=== PATIENT | female | born 1975 | race Caucasian/White ===

== ENCOUNTER 2019-01-08 16:06 | Inpatient (IN) | payer OTHER ==
--- NOTE | 2019-01-08 12:05 | PDOC.LDHP ---
Labor and Delivery H&P Chief complaint: scheduled induction HPI: 43 yo G1 @ 38w0d by 28 week sono who presents for IOL due to BDM on Metformin, AMA, morbid obesity. Pt also has h/o LTC, tobacco and statin exposure in early . MFM ultrasounds and echo is wnl. Current gestational age (weeks): 38 Due date: 01/22/19 Dating criteria: other Grav: 1 Para: 0 Current complications: pregestational diabetes, other (Morbid obesity , tobacco use, statin exposure, LTC) Current medications: pre-jeaneth vitamins, other (Metformin 1000 mg BID) Previous surgical history: other (Bilteral knee arthroscopy Tonsillectomy) Allergies/Adverse Reactions: Allergies Allergy/AdvReac Type Severity Reaction Status Date / Time No Known Drug Allergies Allergy Verified 01/08/19 21:38 Social history: tobacco use (Stopped, however, smoked until 28 weeks) - Physical Exam Vital signs reviewed and normal: yes General: NAD Abdomen: gravid FHT: category 1 (140s, mod janell, +accels, no decels) [place] contractions every: none - Vaginal Exam cm dilated: 1 (per RN check ) Effacement: 25% Station: -2 - OB Labs Blood type: O RH: negative Antibody Screen: negative HIV: negative RPR: negative HEPSAg: negative GBS: negative Urine drug screen: negative Rubella: immune Additional Labs: NIPT and carrier screening wnl HbA1C 5.5 - Assessment 38w0d IUP BDM Morbid obesity Tobacco and statin exposure in LTC IOL - Plan Plan: admit to L&D, cervical ripening, informed consent obtained, anesthesia consult for pain management -: Decreased daily Metformin to 500 mg BID while in labor Accuchecks q hour in active labor
[2019-01-08] MEDS ORDERED: Diphenoxylate HCl/Atropine Tablet PO PRN (20:55)
[2019-01-08] MEDS ORDERED: Misoprostol 200 MCG TAB PR PRN (20:55)
[2019-01-08] MEDS ORDERED: HYDROcodone/Acetaminophen 5/325 mg Tablet PO PRN (20:55)
[2019-01-08] MEDS ORDERED: Insulin Regular 300 UNITS/3 ML VIAL SC PRN (20:55)
[2019-01-08] MEDS ORDERED: Butorphanol Tartrate 1 MG/ML VIAL SLOW IVP PRN (20:55)
[2019-01-08] MEDS ORDERED: NS / Oxytocin 40 units/1000ml 1,000 ML IV PRN (20:55)
[2019-01-08] MEDS ORDERED: Ondansetron PF 4 MG/2 ML Vial IVP PRN (20:55)
[2019-01-08] MEDS ORDERED: Methylergonovine 0.2 MG/ML VIAL IM PRN (20:55)
[2019-01-08] MEDS ORDERED: Ibuprofen 800 MG TAB PO PRN (20:55)
[2019-01-08] MEDS ORDERED: Lidocaine 1% (PF) 30 ML VIAL SC PRN (20:55)
[2019-01-08] MEDS ORDERED: Acetaminophen 500 MG TAB PO PRN (20:55)
[2019-01-08] MEDS ORDERED: Promethazine HCl 25 MG/ML VIAL IM PRN (20:55)
[2019-01-08] MEDS ORDERED: Carboprost 250 MCG/ML AMP IM PRN (20:55)
[2019-01-08] MEDS ORDERED: metFORMIN 500 MG TAB PO SCH (21:15)
[2019-01-08 21:37] VITALS: BMI 43.6
[2019-01-08] MEDS: Lactated Ringer's 1,000 ML IV SCH (21:48)
[2019-01-08] MEDS: Misoprostol 100 MCG TAB VAG SCH (22:03)
[2019-01-08 22:26] LABS: Hemoglobin 11.5 g/dL (12.0-16.0); Mean Corpuscular HGB CONC 34.3 g/dL (32.0-36.0); Mean Corpuscular Hemoglobin 31.7 pg (27.0-31.0); Mean Corpuscular Volume 92.4 fL (78.0-98.0); Mean Platelet Volume 9.5 fL (7.4-10.4); Platelet Count 209 thou/uL (130-400); RBC Distribution Width 12.3 % (11.5-14.5); Red Blood Cell (RBC) Count 3.63 mill/uL (4.20-5.40); White Blood Cell (WBC) Count 12.6 thou/uL (4.8-10.8)
[2019-01-08 23:00] LABS: Syphilis Antibody Nonreactive (Nonreactive); Syphilis Antibody Index 0.03 S/CO (<1.00 Non-Reactive)
[2019-01-08 23:33] LABS: HBSAg Index 0.25 S/CO (0-0.99); HIV (1/2) Antibody/Antigen Non-Reactive (NonReactive); HIV 1/2 INDEX 0.09 S/CO (<1.00); Hep B Surf Ag Non-Reactive S/CO (NonReactive)
[2019-01-09] MEDS ORDERED: Terbutaline Sulfate 1 MG/ML VIAL ONE (02:07)
--- NOTE | 2019-01-09 02:11 | PDOC.LDPN ---
Labor & Delivery Progress Note - Subjective Subjective: other (Called by RN for concern for FHT. Per RN pt comfortable. ) - Objective Vital signs reviewed and normal: yes Dilation: 1 Effacement: 25% Station: -2 FHT: category 2 (140s, mod janell, +accels, ? variable vs prolonged decels with recovery to baseline. ) [place] contractions every: unable to adequately assess due to obesity Resuscitative measures: maternal oxygen, maternal IV fluids, maternal position change - Assessment (1) 38 weeks gestation of Code(s): Z3A.38 - 38 WEEKS GESTATION OF Current Visit: Yes Status : Acute (2) Diabetes mellitus affecting Code(s): O24.919 - UNSP DIABETES MELLITUS IN , UNSPECIFIED TRIMESTER Current Visit: Yes Status: Acute (3) Morbid obesity Code(s): E66.01 - MORBID (SEVERE) OBESITY DUE TO EXCESS CALORIES Current Visit : Yes Status: Acute (4) Advanced maternal age (AMA) in Code(s): [id number] - Current Visit: Yes Status: Acute Plan: continue plan of care, resuscitative measures -: s/p cytotec x1. Due to change in FHT and inability to assess ctx adequately, will give dose of terb x1 as pt may have hyperstimulation that is unable to be fully evaluated leading to decels. Resuscitative measures. Reassess shortly to determine if IOL may be continued. After terb x1 decels resolved and cook balloon placed for cervical ripening by Dr. Lopez.
[2019-01-09] MEDS: Lactated Ringer's 1,000 ML IV SCH ×2 (02:15→08:17)
[2019-01-09] MEDS ORDERED: Terbutaline Sulfate 1 MG/ML VIAL SC SCH (02:15)
--- NOTE | 2019-01-09 08:04 | PDOC.LDPN ---
Labor & Delivery Progress Note - Subjective Subjective: comfortable - Objective Vital signs reviewed and normal: yes General: NAD Uterine fundus: non tender Dilation: 4 Effacement: 75% Station: -2 FHT: category 2 (140s, mod janell, +accels, few variable decels with recovery (one prolonged to 60s x 2 min with recovery). ) Other exam findings: Cook balloon removed AROM: clear fluid IUPC placed: yes FSE placed: yes Resuscitative measures: maternal IV fluids, maternal position change - Assessment (1) 38 weeks gestation of Code(s): Z3A.38 - 38 WEEKS GESTATION OF Current Visit: Yes Status : Acute (2) Diabetes mellitus affecting Code(s): O24.919 - UNSP DIABETES MELLITUS IN , UNSPECIFIED TRIMESTER Current Visit: Yes Status: Acute (3) Morbid obesity Code(s): E66.01 - MORBID (SEVERE) OBESITY DUE TO EXCESS CALORIES Current Visit : Yes Status: Acute (4) Advanced maternal age (AMA) in Code(s): [id number] - Current Visit: Yes Status: Acute Plan: continue plan of care, pitocin for augmentation, resuscitative measures -: AROM and Internals placed Monitor and if FHTs reassuring will consider adding pitocin for IOL
[2019-01-09] MEDS: metFORMIN 500 MG TAB PO SCH ×2 (08:29→17:24)
[2019-01-09] MEDS ORDERED: NS w/ Oxytocin 10 units 500 ML IV SCH (09:00)
[2019-01-09] MEDS ORDERED: Fentanyl 4 mcg/Bup 0.1% Cadd 100 ML ONE (09:08)
[2019-01-09] MEDS ORDERED: Promethazine HCl 25 MG/ML VIAL IM PRN ×2 (09:40→12:59)
[2019-01-09] MEDS ORDERED: Ondansetron PF 4 MG/2 ML Vial IVP PRN ×2 (09:40→12:59)
[2019-01-09] MEDS ORDERED: diphenhydrAMINE 50 MG/ML VIAL IVP PRN ×2 (09:40→12:59)
[2019-01-09] MEDS ORDERED: Naloxone HCl 0.4 mg/ml Vial IVP PRN ×4 (09:40→12:59)
[2019-01-09] MEDS ORDERED: Acetaminophen 325 MG TAB PO PRN (09:40)
[2019-01-09] MEDS ORDERED: Lactated Ringer's 500 ML IV PRN (09:40)
[2019-01-09] MEDS ORDERED: ePHEDrine/0.9% NaCl/PF SYRINGE 50 mg/10 ml SLOW IVP PRN (09:40)
[2019-01-09] MEDS ORDERED: Eucerin (Mineral Oil/Petrolatum,White) 30 gm Jar TOP PRN ×2 (09:40→12:59)
[2019-01-09] MEDS ORDERED: Communication Order-Pharmacy FS SCH ×2 (09:45→13:00)
[2019-01-09] MEDS ORDERED: Fentanyl 4 mcg/Bupivacaine 0.1% Cassette 100 ML EPIDURAL SCH (09:45)
[2019-01-09] MEDS ORDERED: Bicitra 30 ML UDCUP ONE (12:23)
[2019-01-09] MEDS ORDERED: Lidocaine 2% 10 ML INJ ONE (12:26)
--- NOTE | 2019-01-09 12:28 | PDOC.LDPN ---
Labor & Delivery Progress Note - Subjective Subjective: comfortable, other (Increased vaginal bleeding noted by RN and OBH on exam ) - Objective Abnormal vital signs: mild HTN, no persistent severe range BPs General: NAD Uterine fundus: non tender Dilation: 7-8 Effacement: 90% Station: -1 FHT: category 2 (130s, min janell, +accels, prolonged decels to 60s x 2 min with recovery between ) Resuscitative measures: maternal oxygen, maternal IV fluids, maternal position change - Assessment (1) 38 weeks gestation of Code(s): Z3A.38 - 38 WEEKS GESTATION OF Current Visit: Yes Status : Acute (2) Diabetes mellitus affecting Code(s): O24.919 - UNSP DIABETES MELLITUS IN , UNSPECIFIED TRIMESTER Current Visit: Yes Status: Acute (3) Morbid obesity Code(s): E66.01 - MORBID (SEVERE) OBESITY DUE TO EXCESS CALORIES Current Visit : Yes Status: Acute (4) Advanced maternal age (AMA) in Code(s): [id number] - Current Visit: Yes Status: Acute -: Reviewed Concerning cat 2 FHTs and increased VB with pt. Due to these findings, concern for possible placental abruption. Pt still remote from delivery at this time, therefore, recommended PLTCS and pt amenable. PreE labs also ordered.
[2019-01-09] MEDS ORDERED: Oxytocin 10 UNITS/ML VIAL ONE (12:42)
[2019-01-09] MEDS ORDERED: MORPHINE 5 MG/10 ML PF VIAL ONE (12:43)
[2019-01-09 12:45] LABS: Bacteria/HPF None Seen HPF (None Seen); Hyaline Casts/LPF 0-3 HYALINE CAST LPF (0-3 Hyaline); Pathc Cast-AUWi Flag 0.81 (0-2.49); RBC/HPF 0-3 HPF (0-3); Squamous Epithelial 0-3 HPF (0-3); WBC/HPF None Seen HPF (0-3)
[2019-01-09] MEDS ORDERED: Azithromycin 500 MG in Sodium Chloride 0.9% 250 ML 250 ML IVPB SCH (12:45)
[2019-01-09] MEDS ORDERED: CEFAZOLIN 3 GM in Premix Bag 1 BAG IVPB SCH (12:45)
[2019-01-09] MEDS ORDERED: CEFAZOLIN 3 GM in Sodium Chloride 0.9% 100 ML IVPB SCH (12:45)
[2019-01-09] MEDS ORDERED: CEFAZOLIN 1 GM VIAL ONE (12:48)
[2019-01-09] MEDS ORDERED: Meperidine HCl/PF 25 MG/ML VIAL SLOW IVP PRN (12:59)
[2019-01-09] MEDS ORDERED: L&D-Morphine 4 MG/ML VIAL SLOW IVP PRN (12:59)
[2019-01-09] MEDS ORDERED: Promethazine HCl 25 MG SUPP PR PRN (12:59)
[2019-01-09] MEDS ORDERED: Ondansetron HCl/PF 4 MG/2 ML Vial IVP PRN (12:59)
[2019-01-09] MEDS ORDERED: Naloxone HCl 0.4 mg/ml Vial IV PRN (12:59)
[2019-01-09] MEDS ORDERED: HYDROmorphone 2 MG/ML VIAL SLOW IVP PRN (12:59)
[2019-01-09 13:00] LABS: ALT (SGPT) 10 U/L (8-55); AST (SGOT) 11 U/L (5-34); Alkaline Phosphatase 115 U/L (40-150); Anion Gap 12 mmol/L (10-20); BUN (Urea Nitrogen) 4 mg/dL (7.0-18.7); Bilirubin, Total 0.5 mg/dL (0.2-1.2); Calc. Creatinine Clearance 242 mL/min (70-130); Carbon Dioxide 22 mmol/L (22-29); Chloride 108 mmol/L (98-107); Estimated GFR-MDRD Greater than 90; Globulin 2.3 g/dL (2.4-3.5); Glucose 108 mg/dL (70-105); Protein, Total 5.3 g/dL (6.0-8.3); Sodium 138 mmol/L (136-145)
[2019-01-09] MEDS ORDERED: Ketorolac Tromethamine 30 MG/ML VIAL IVP SCH (13:00)
[2019-01-09] MEDS ORDERED: Midazolam HCl 2 mg/2 ml Vial ONE (13:06)
--- NOTE | 2019-01-09 13:23 | PDOC.OPDEL ---
OB Operative/Delivery Note Delivery Dr/Surgeon: Quyen Alexandra DO Assist: Odilon Jacobs MD Pre-Delivery Diagnosis: medically indicated induction Procedure/Post Delivery Dx: primary low transverse CS Weeks gestation: 38 Anesthesia: epidural - Findings A Sex: male - 1 min: 7 - 5 min: 9 - Additional Findings/Plan Placenta delivered: spontaneous findings: low transverse hysterotomy without extension, normal uterus, normal tubes, normal ovaries Estimated blood loss: QBL 335 cc Compilations/Other Findings: in cephalic presentation Clear amniotic fluid Nuchal cord x1 Calcified appearing placenta; no obvious placental abruption. Post delivery plan: routine recovery (Dictation # [id number])
[2019-01-09 13:27] LABS: Actual Bicarbonate (HCO3a) 22.2 mEq/L (22-28); Base Excess (BEa) -10.3 mEq/L (-2.0 to +3.0)
[2019-01-09 13:33] LABS: Actual Bicarbonate (HCO3v) 23 mEq/L (22-28); Base Excess -7.5 mEq/L (-2.0 to +3.0); pH (Cord, venous) 7.14 (7.32-7.43)
[2019-01-09] MEDS: Misoprostol 100 MCG TAB VAG SCH (14:01)
[2019-01-09] MEDS ORDERED: Simethicone Chewable 80 MG TAB PO PRN (14:42)
[2019-01-09] MEDS ORDERED: Bisacodyl 10 MG SUPP PR PRN (14:42)
[2019-01-09] MEDS ORDERED: diphenhydrAMINE 25 MG CAP PO PRN (14:42)
[2019-01-09] MEDS: Ketorolac Tromethamine 30 MG/ML VIAL IVP PRN (15:35)
[2019-01-09] MEDS ORDERED: Lidocaine 2% PF 5 ML VIAL ONE (15:47)
[2019-01-09] MEDS ORDERED: Bupivacaine/Epinephrine 0.25% 30 ML VIAL ONE (18:00)
[2019-01-09] MEDS ORDERED: Acetaminophen 1,000 MG in Premix Bag 1 BAG IVPB PRN (20:16)
[2019-01-09] MEDS: Docusate Calcium (SURFAK) 240 MG CAP PO SCH (22:01)
[2019-01-10] MEDS ORDERED: HYDROcodone/Acetaminophen 5/325 mg Tablet PO PRN ×2 (01:00)
[2019-01-10] MEDS: Lactated Ringer's 1,000 ML IV SCH ×3 (01:13→14:40)
[2019-01-10] MEDS: Ketorolac Tromethamine 30 MG/ML VIAL IVP PRN (04:35)
[2019-01-10 06:07] LABS: #Eosinphils 0.1 thou/uL (0.0-0.7); #Lymphocytes 2.1 thou/uL (1.20-3.40); #Monocytes 0.7 thou/uL (0.11-0.59); %Basophils 0.2 % (0.0-1.0); %Eosinophils 0.6 % (0.0-10.0); %Lymphocytes 15.2 % (21.0-51.0); %Monocytes 4.7 % (0.0-10.0); %Neutrophils 79.3 % (42.0-75.0); Hemoglobin 10.4 g/dL (12.0-16.0); Mean Corpuscular HGB CONC 34.6 g/dL (32.0-36.0); Mean Corpuscular Hemoglobin 32.6 pg (27.0-31.0); Mean Corpuscular Volume 94.2 fL (78.0-98.0); Mean Platelet Volume 9.5 fL (7.4-10.4); Platelet Count 146 thou/uL (130-400); RBC Distribution Width 12.3 % (11.5-14.5); Red Blood Cell (RBC) Count 3.19 mill/uL (4.20-5.40); White Blood Cell (WBC) Count 13.9 thou/uL (4.8-10.8)
--- NOTE | 2019-01-10 07:48 | PDOC.PP ---
Post Progress Note Post Day #: 1 Subjective: No concerns. Minimal pain and lochia. Benson removed. Breast feeding. PO intake tolerated: yes Flatus: yes Ambulation: yes Vital Signs (12 hours) Temp Pulse Resp BP Pulse Ox 01/10/19 06:24 20 01/10/19 04:00 97.6 F 79 20 114/55 L 01/10/19 02:00 18 01/10/19 00:00 97.8 F 75 18 112/56 L 01/09/19 22:00 18 01/09/19 20:00 97.6 F 75 18 129/62 97 Weight Weight 287 lb - Physical Examination General: NAD Cardiovascular: RRR Respiratory: non-labored breathing Abdominal: no distention, appropriately TTP Extremities: negative homans (B) Deviation from normal: Provena dressing in place, secured and clean Neurological: no gross focal deficits Psychiatric: A&Ox3, normal affect Result Diagrams: 01/10/19 05:46 01/09/19 12:25 Additional Labs: Post Labs Blood Type O NEGATIVE 01/08/19 22:15 Hep Bs Antigen Non-Reactive S/CO (NonReactive) 01/08/19 22:15 (1) 38 weeks gestation of Code(s): Z3A.38 - 38 WEEKS GESTATION OF Status: Resolved (2) Diabetes mellitus affecting Code(s): O24.919 - UNSP DIABETES MELLITUS IN , UNSPECIFIED TRIMESTER Status: Acute (3) Morbid obesity Code(s): E66.01 - MORBID (SEVERE) OBESITY DUE TO EXCESS CALORIES Status: Resolved (4) Advanced maternal age (AMA) in Code(s): [id number] - Status: Resolved - Assessment/Plan PPD1 VSSAF Continue PP care. Plan for d/c 1-2 days.
[2019-01-10] MEDS: Prenatal Vitamin 1 TAB PO SCH (09:00)
[2019-01-10] MEDS: metFORMIN 500 MG TAB PO SCH ×2 (09:23→17:39)
[2019-01-10] MEDS: Docusate Calcium (SURFAK) 240 MG CAP PO SCH ×2 (09:23→21:20)
[2019-01-10] MEDS ORDERED: Acetaminophen 500 MG TAB PO PRN (10:50)
--- NOTE | 2019-01-10 10:51 | OP ---
DATE OF PROCEDURE: 01/09/2019 PREOPERATIVE DIAGNOSES: 1. A 38 week and 1-day intrauterine . 2. Class B diabetes mellitus. 3. Advanced maternal age. 4. Morbid obesity. 5. intolerance to labor. POSTOPERATIVE DIAGNOSES: 1. A 38 week and 1-day intrauterine . 2. Class B diabetes mellitus. 3. Advanced maternal age. 4. Morbid obesity. 5. intolerance to labor. PROCEDURE PERFORMED: Primary low-transverse delivery via Pfannenstiel skin incision. SURGEON: Quyen Alexandra DO LEAD CARE MANAGER: Jatinder Jacobs MD COMPLICATIONS: None. ANESTHESIA: Epidural. ESTIMATED BLOOD LOSS: 500 mL. QBL: 335 mL IV FLUIDS: 400 mL. URINARY OUTPUT: 150 mL of clear urine. FINDINGS: Normal-appearing uterus, fallopian tubes, and ovaries bilaterally. Clear amniotic fluid. Viable male in cephalic presentation with Apgars 7 and 9. Severely calcified appearance to the placenta, however, no overt signs of placental abruption. INDICATIONS FOR THE PROCEDURE: Ms. Varinder Astudillo is a 43-year-old, G1, P0, at 38 weeks and 1-day, who underwent an induction of labor due to class B diabetes, advanced maternal age, and morbid obesity. The patient underwent cervical ripening followed by artificial rupture of membranes and progressed to approximately 8 cm. At this point, the fetus began to display repetitive, recurrent, deep, prolonged decelerations to the 60s with a minimally adequate contraction pattern and the patient also began to have increased vaginal bleeding. Due to these findings and being remote from delivery, primary delivery was recommended. The patient was amenable. All questions were answered with her and her . DESCRIPTION OF PROCEDURE: The patient was brought to the operating room. She was placed in supine position with a leftward tilt. She had a Benson catheter in place. Her epidural anesthesia was also already in place. She was given Ancef for surgical prophylaxis and later given azithromycin. She was prepped and draped in a sterile fashion. An official time-out was performed. Her anesthesia was assessed and proven to be adequate. A Pfannenstiel skin incision was made using the scalpel. This was carried down to the underlying fascia layer. The fascia was incised in the midline and extended bilaterally using Caldwell scissors. The superior aspect of the fascial incision was grasped using Calin clamps, tented upward, and dissected free from the underlying rectus abdominis muscles and the same was performed to the inferior aspect of the fascial incision. The peritoneum was then grasped using hemostats, incised using Metzenbaum scissors and extended using blunt dissection. The Gabriele O retractor was then placed into the abdomen. A bladder flap was created using Metzenbaum scissors. A low-transverse hysterotomy was made using a scalpel. The hysterotomy was extended using blunt dissection. Amniotic membranes were ruptured with blunt dissection, noting clear amniotic fluid. was delivered in cephalic presentation. The delivery of infant was difficult initially due to descent from the active phase of labor and also due to a Bandals band of the uterus, however the was able to be delivered in cephalic presentation. 's cord was clamped and cut. The was handed to the waiting neonatology team. Cord sample for cord gases and cord blood were obtained. The placenta was delivered spontaneously intact. Placenta was evaluated and very calcified in appearance, but no overt abruption was noted. The uterus was cleared of all clot and debris. Hysterotomy was closed in running locking fashion using 1 Monocryl. Hysterotomy was hemostatic after closure and the pelvis was irrigated, cleared of all clot and debris. The bilateral fallopian tubes and ovaries were evaluated and normal in appearance. The Gabriele O retractor was removed from the abdomen. The fascia was then closed in a running fashion using 0 PDS. The subcutaneous layer was copiously irrigated and hemostatic with use of Bovie and was closed using 3-0 Vicryl. The skin was closed using agustina, and Prevena dressing was placed due to obesity and diabetes. All counts were correct x3. Mother and infant will be transferred to routine recovery. Job ID: [id number] [facility]
[2019-01-10] MEDS: Ibuprofen 800 MG TAB PO SCH (17:45)
[2019-01-11] MEDS: Ibuprofen 800 MG TAB PO SCH ×4 (00:39→21:04)
[2019-01-11] MEDS: Lactated Ringer's 1,000 ML IV SCH ×3 (02:10→21:05)
--- NOTE | 2019-01-11 07:47 | PDOC.PP ---
Post Progress Note Post Day #: 2 Subjective: No concerns. Minimal lochia and pain. BG wnl. Breast and bottle feeding. PO intake tolerated: yes Flatus: yes Ambulation: yes Vital Signs (12 hours) Temp Pulse Resp BP BP Pulse Ox 01/11/19 06:16 84 20 140/76 01/11/19 00:00 97.1 F L 85 20 138/65 01/10/19 19:49 97.9 F 85 18 139/72 97 Weight Weight 287 lb - Physical Examination General: NAD Cardiovascular: RRR Respiratory: non-labored breathing Abdominal: no distention, appropriately TTP Fundus firm & at: below umbilicus Extremities: negative homans (B) Deviation from normal: Provena clean and intact Neurological: no gross focal deficits Psychiatric: A&Ox3, normal affect Result Diagrams: 01/10/19 05:46 01/09/19 12:25 Additional Labs: Post Labs Blood Type O NEGATIVE 01/08/19 22:15 Hep Bs Antigen Non-Reactive S/CO (NonReactive) 01/08/19 22:15 (1) 38 weeks gestation of Code(s): Z3A.38 - 38 WEEKS GESTATION OF Status: Resolved (2) Diabetes mellitus affecting Code(s): O24.919 - UNSP DIABETES MELLITUS IN , UNSPECIFIED TRIMESTER Status: Acute (3) Morbid obesity Code(s): E66.01 - MORBID (SEVERE) OBESITY DUE TO EXCESS CALORIES Status: Resolved (4) Advanced maternal age (AMA) in Code(s): [id number] - Status: Resolved - Assessment/Plan PPD2 VSSAF plan for possible d/c today pending infant d/c Continue metformin 500 mg BID
[2019-01-11] MEDS: Prenatal Vitamin 1 TAB PO SCH (09:39)
[2019-01-11] MEDS: Docusate Calcium (SURFAK) 240 MG CAP PO SCH ×2 (09:39→21:04)
[2019-01-11] MEDS: metFORMIN 500 MG TAB PO SCH ×2 (09:40→17:33)
[2019-01-11] MEDS: Misoprostol 100 MCG TAB VAG SCH (22:23)
[2019-01-12] MEDS: Lactated Ringer's 1,000 ML IV SCH ×2 (00:29→13:50)
[2019-01-12] MEDS: Ibuprofen 800 MG TAB PO SCH ×2 (05:13→13:49)
[2019-01-12] MEDS: metFORMIN 500 MG TAB PO SCH (08:55)
[2019-01-12] MEDS: Prenatal Vitamin 1 TAB PO SCH (08:55)
[2019-01-12] MEDS: Docusate Calcium (SURFAK) 240 MG CAP PO SCH (08:56)
[2019-01-12 11:52] VITALS: BP 122/67; TEMP 98.2
== END 2019-01-12 15:40 | disposition home or self-care (01) | DRG 788 ==
LOC: L&D 20:51 → 3SW 01-09 15:20 → EDSTATUS 01-22 16:05
PROVIDERS: ADMIT Obstetrics & Gynecology; ATTEND Obstetrics & Gynecology
PROC: 3E0P7VZ Introduction of Hormone into Female Reproductive, Via Natural or Artificial Opening (ICD-10-PCS; 2019-01-09)
PROC: 10907ZC Drainage of Amniotic Fluid, Therapeutic from Products of Conception, Via Natural or Artificial Opening (ICD-10-PCS; 2019-01-09)
PROC: 10D00Z1 Extraction of Products of Conception, Low, Open Approach (ICD-10-PCS; principal; 2019-01-10)
DX: O99.214 Obesity complicating childbirth (principal); O24.82 Other pre-existing diabetes mellitus in childbirth; E13.9 Other specified diabetes mellitus without complications; E66.01 Morbid (severe) obesity due to excess calories; O61.9 Failed induction of labor, unspecified; Z3A.38 38 weeks gestation of pregnancy; Z37.0 Single live birth; O76 Abnormality in fetal heart rate and rhythm complicating labor and delivery; Z79.84 Long term (current) use of oral hypoglycemic drugs
CPT/HCPCS: 36415; 36416; 51702; 80053; 81015; 82805; 85025; 85027; 86780; 86850; 86900; 86901; 87340; 87389; C1726; J0131; J0456; J0690; J1885; J2001; J2250; J2270; J2590; J3105; J7050